=== PATIENT | female | born 1950 | race Hispanic/Latino ===

== ENCOUNTER 2023-10-13 19:31 | Emergency (ER) | payer OTHER ==
[2023-10-13] MEDS ORDERED: IPRATROPIUM BROM 0.5MG/2.5ML ONE (19:59)
[2023-10-13] MEDS ORDERED: ALBUTEROL 2.5 MG/3 ML NEB SOL ONE (19:59)
--- NOTE | 2023-10-13 20:15 | RAD REPORT ---
EXAM DESCRIPTION: Clifford Single View10/13/2023 8:02 pm CLINICAL HISTORY: cough COMPARISON: none FINDINGS: The lungs appear clear of acute infiltrate. The heart is normal size IMPRESSION: No acute abnormalities displayed
[2023-10-13 20:41] LABS: SARS-CoV-2 Antigen CONTROL BLUE LINE VIS/BG OK; SARS-CoV-2 Antigen Rapid Res Negative (Negative)
--- NOTE | 2023-10-13 20:52 | ER ---
Nurse's Notes [facility] Name: Shawna Mercer Age: 73 yrs Sex: Female : 1950 Arrival Date: 10/13/2023 Time: 19:31 Bed 14 Private MD: Diagnosis: Acute upper respiratory infection, unspecified Presentation: 10/12 19:40 Chief complaint: Patient states: Seen in ER on 10/08 for cough and runny nose. Tested ss negative for COVID and flu, prescribed Augmentin and reports that her cough has improved, but she is still wheezing. Coronavirus screen: Client denies travel out of the [place] in the last 14 days. Ebola Screen: Patient denies exposure to infectious person. Patient denies travel to an Ebola-affected area in the 21 days before illness onset. Initial Sepsis Screen: Does the patient meet any 2 criteria? No. Patient's initial sepsis screen is negative. Does the patient have a suspected source of infection? No. Patient's initial sepsis screen is negative. Risk Assessment: Do you want to hurt yourself or someone else? Patient reports no desire to harm self or others. Onset of symptoms was September 29, 2023. 19:40 Method Of Arrival: Ambulatory ss 19:40 Acuity: CARINA 3 ss Triage Assessment: 19:43 General: Appears in no apparent distress. comfortable, Behavior is calm, cooperative. ss Respiratory: Respiratory effort is even, unlabored. Historical: - Allergies: 19:42 Codeine; ss - PMHx: 19:42 Diabetes - NIDDM; Hypertension; Osteoporosis; neuropathy; ss - Immunization history:: Client reports having NOT received the Covid vaccine. - Infectious Disease History:: Denies. - Social history:: Smoking status: Patient denies any tobacco usage or history of. Screenin:58 [facility] ED Fall Risk Assessment (Adult) History of falling in the last 3 months, cp4 including since admission No falls in past 3 months (0 pts) Confusion or Disorientation No (0 pts) Intoxicated or Sedated No (0 pts) Impaired Gait No (0 pts) Mobility Assist Device Used No (0 pt) Altered Elimination No (0 pt) Score/Fall Risk Level 0 - 2 = Low Risk Oriented to surroundings, Maintained a safe environment, Assessed \T\ reinforced patient's understanding of fall precautions, Hourly rounding (assess needs \T\ fall precautionary measures) done. Abuse screen: Denies threats or abuse. Nutritional screening: No deficits noted. Tuberculosis screening: No symptoms or risk factors identified. Assessment: 20:58 General: Appears uncomfortable, Behavior is calm, cooperative, appropriate for age. cp4 Pain: Denies pain. EENT: No deficits noted. 21:00 Respiratory: Respiratory: Breath sounds are clear bilaterally. cp4 Vital Signs: 19:40 BP 127 / 67; Pulse 79; Resp 17; Temp 98.2(O); Pulse Ox 98% on R/A; Weight 93.44 kg; ss Height 5 ft. 3 in. ; Pain 0/10; 20:57 BP 123 / 63; Pulse 85; Resp 18; Pulse Ox 97% ; cp4 19:40 Body Mass Index 36.49 (93.44 kg, 160.02 cm) ss 19:40 Pain Scale: Adult ss ED Course: 19:32 Patient arrived in ED. am2 19:33 [facility]C [facility]. kb 19:33 Kenneth Arboleda MD is Attending Physician. kb 19:36 Alicia Pascual is Primary Nurse. cp4 19:42 Triage completed. ss 19:42 Arm band placed on right wrist. ss 19:58 SARS-COV-2 Antigen Rapid Sent. cp4 19:58 Flu Sent. cp4 20:04 Chest Single View XRAY In Process Unspecified. EDMS 20:58 Bed in low position. Call light in reach. Side rails up X2. Provided Education on: cp4 upper respiratory infection. 20:58 No provider procedures requiring assistance completed. Patient did not have IV access cp4 during this emergency room visit. Administered Medications: 20:07 Drug: Albuterol Inhalation 2.5 mg Inhalation once Route: Inhalation; cp4 21:02 Follow up: Response: No adverse reaction cp4 20:07 Drug: Ipratropium Inhalation Aerosol 0.5 mg Inhalation once Route: Inhalation; cp4 21:02 Follow up: Response: No adverse reaction cp4 Medication: 20:58 VIS not applicable for this client. cp4 Outcome: 20:51 Discharge ordered by . kb 21:02 Discharged to home ambulatory, cp4 21:02 Condition: stable 21:02 Discharge instructions given to patient, Instructed on discharge instructions, follow up and referral plans. medication usage, Demonstrated understanding of instructions, follow-up care, medications, Prescriptions given X 1, 21:03 Patient left the ED. cp4 Signatures: Dispatcher [employer] Lisandra Holm, HUYEN-Alverto S[employer]IOR SOFTWARE SYSTEM[employer] ENGINEER-Micki Melton, RN RN Carmen Alvarenga Christina cp4 Corrections: (The following items were deleted from the chart) 21:01 21:00 Respiratory: Reports shortness of breath on exertion Breath sounds with wheezes cp4 bilaterally. cp4
--- NOTE | 2023-10-13 20:52 | EDPHYS ---
Physician Documentation [facility] Name: Shawna Mercer Age: 73 yrs Sex: Female : 1950 Arrival Date: 10/13/2023 Time: 19:31 Bed 14 Private MD: ED Physician Kenneth Arboleda HPI: 10/12 21:08 This 73 yrs old Female presents to ER via Ambulatory with complaints of Cough, kb Runny Nose, Ear Pain, Wheezing < 1 Year. 21:10 Pt is a 73 year old female who presents for cough, congestion, runny nose and ear pain kb that started 2 weeks ago. States she was seen on 10/09/23, tested negative for flu and covid, placed on augmentin. Came in today because she coughs through the night and feels like she wheezes when she lays down. States she didn't want to spend another night like that. Historical: - Allergies: 19:42 Codeine; ss - PMHx: 19:42 Diabetes - NIDDM; Hypertension; Osteoporosis; neuropathy; ss - Immunization history:: Client reports having NOT received the Covid vaccine. - Infectious Disease History:: Denies. - Social history:: Smoking status: Patient denies any tobacco usage or history of. ROS: 21:08 Constitutional: As per HPI kb Exam: 21:08 Constitutional: This is a well developed, well nourished patient who is awake, alert, kb and in no acute distress. Head/Face: Normocephalic, atraumatic. ENT: Moist Mucous membranes Cardiovascular: Regular rate Respiratory: Respirations even and unlabored. No increased work of breathing. Talking in full sentences Abdomen/GI: Soft, non-tender. No distention Skin: Warm, dry with normal turgor. Normal color. MS/ Extremity: Pulses equal, no cyanosis. Neurovascular intact. Full, normal range of motion. Neuro: Awake and alert, GCS 15, oriented to person, place, time, and situation. Moves all extremities. Normal gait. Vital Signs: 19:40 BP 127 / 67; Pulse 79; Resp 17; Temp 98.2(O); Pulse Ox 98% on R/A; Weight 93.44 kg; ss Height 5 ft. 3 in. ; Pain 0/10; 20:57 BP 123 / 63; Pulse 85; Resp 18; Pulse Ox 97% ; cp4 19:40 Body Mass Index 36.49 (93.44 kg, 160.02 cm) ss 19:40 Pain Scale: Adult ss MDM: 19:33 Patient medically screened. kb 21:08 Differential Diagnosis: Bronchitis Influenza Upper Respiratory Infection Sinusitis kb Pneumonia. Data reviewed: vital signs, nurses notes. Test considered but Not performed: Labs: cbc and cmp considered but pt is afebrile, nontoxic in appearance, resp even and unlabored, chest x-ray noraml. Counseling: I had a detailed discussion with the patient and/or guardian regarding the historical points, exam findings, and any diagnostic results supporting the discharge/admit diagnosis, lab results, radiology results, the need for outpatient follow up, a family practitioner, to return to the emergency department if symptoms worsen or persist or if there are any questions or concerns that arise at home. 10/12 19:38 Order name: Flu; Complete Time: 20:44 kb 10/12 19:38 Order name: SARS-COV-2 Antigen Rapid; Complete Time: 20:44 kb 10/12 19:38 Order name: Chest Single View XRAY; Complete Time: 20:16 kb Administered Medications: 20:07 Drug: Albuterol Inhalation 2.5 mg Inhalation once Route: Inhalation; cp4 21:02 Follow up: Response: No adverse reaction cp4 20:07 Drug: Ipratropium Inhalation Aerosol 0.5 mg Inhalation once Route: Inhalation; cp4 21:02 Follow up: Response: No adverse reaction cp4 Disposition Summary: 10/13/23 20:51 Discharge Ordered Notes: Location: Home kb Condition: Stable kb Diagnosis - Acute upper respiratory infection, unspecified kb Followup: kb - With: Emergency Department - When: As needed - Reason: Worsening of condition Followup: kb - With: Private Physician - When: 2 - 3 days - Reason: Recheck today's complaints, Continuance of care, Re-evaluation by your physician Discharge Instructions: - Discharge Summary Sheet kb - Upper Respiratory Infection, Adult, [id number] kb Forms: - Medication Reconciliation Form kb - Antibiotic Education kb - Prescription Opioid Use kb - Patient Portal Instructions kb - Leadership Thank You Letter kb Prescriptions: - albuterol sulfate 90 mcg/actuation Inhalation HFA Aerosol Inhaler - inhale 2 inhalation INHALATION route every 4 to 6 hours As needed; 1 unit; kb Refills: 0, Product Selection Permitted Signatures: Dispatcher [employer] EDMS Lisandra Dooley, Micki Weaver, RN RN Alicia Combs cp4 Corrections: (The following items were deleted from the chart) 19:39 19:39 Influenza Screen (A \T\ B)+BA.LAB.BRZ ordered. EDMS EDMS 19:39 19:39 SARS-COV-2 Antigen Rapid+I.LAB.BRZ ordered. EDMS EDMS 19:39 19:39 Chest Single View+RAD.RAD.BRZ ordered. EDMS EDMS
[2023-10-13 21:14] VITALS: BP 123/63; TEMP 98.2; O2SAT 97
== END 2023-10-13 21:03 | disposition home or self-care (01) ==
LOC: ER 19:31
DX: J06.9 Acute upper respiratory infection, unspecified (principal); Z11.52 Encounter for screening for COVID-19; Z28.310 Unvaccinated for COVID-19
CPT/HCPCS: 36415; 87804 ×2; 71045; 99284; 87811; J7613; J7644